=== PATIENT | female | born 1950 | race Caucasian/White ===

== ENCOUNTER 2023-12-30 08:18 | Outpatient (CLI) | payer OTHER, SELFPAY ==
--- NOTE | ~2023-12-30 | CT_ITS ---
CT Scan of the Chest without Contrast: Clinical Indication: Bronchiectasis Technique: Contiguous sections were acquired throughout the chest without intravenous contrast. Dose reduction technique was used on this scan by utilizing automated exposure control and iterative recon struction technique. The dose-length product (DLP) was 195.20 mGy-cm. COMPARISON: 09/19/2023 Findings: There is no evidence of any significant mediastinal, hilar or axillary lymphadenopathy. There are ext ensive atherosclerotic calcifications of the aorta and coronary arteries. There is no evidence of pleural or pericardial effusion. No significant bronchiectatic change seen. Pulmonary cyst noted in the right upper lobe. There is min imal nodularity of the right lung base, most prominent on axial image 80, where there is a 4 mm nodul e. There is mild left basilar atelectatic change. Images through the upper abdomen reveal large calcified gallstone. Chronic bilateral rib fracture def ormities are present. Impression: No bronchiectasis. Minimal nodularity right lung base, likely chronic/benign. Consider annual follow-up CT. Cholelithiasis. Reviewed, dictated and finalized at [facility]. Impression: No bronchiectasis. Minimal nodularity right lung base, likely chronic/benign. Consider annual foll ow-up CT. Cholelithiasis.
--- NOTE | 2023-12-30 11:53 | WPDPFTINT ---
PFT Procedure Performed PFT Procedure Performed Plethysmography (Lung Vol) Diffusing Cap (DLCO) Flow Vol Loop Spirometry w/o Bronchodil PFT Interpretation Lung volumes were measured with the body plethysmography method. Lung volumes are unremarkable. Spirometry showed normal expiratory flow rates and a normal FEV1 to FVC ratio 67%. Lung diffusion capacity is mild moderately reduced at 55% predicted. The flow volume loop is unremarkable. Of note during DLCO measurement the patient developed stridor. Reportedly she had no wheezing. Stridor cleared without treatment after few minutes. Clinical correlation advised. Impression: Spirometry and lung volumes within normal range. Moderately reduced lung diffusion capacity..
--- NOTE | 2023-12-30 11:55 | WPDSIXMINUTE ---
Six Minute Walk Procedure Procedure Performed Pulmonary Stress Test (6 min walk) Six Minute Walk Six Minute Walk: This 6 minute walk test was carried out with the patient breathing ambient air. The pre-walk baseline oxyhemoglobin saturation was 98%. The patient walked 900 feet with no stops during testing. During the walk the oxyhemoglobin saturation remained near 94%-95%. Impression: No evidence of oxyhemoglobin desaturation on this testing.
== END 2023-12-30 08:19 | disposition home or self-care (01) ==
PROVIDERS: PCP Internal Medicine; Visit Provider Internal Medicine Pulmonary Disease
DX: J47.9 Bronchiectasis, uncomplicated (principal); J45.909 Unspecified asthma, uncomplicated; R94.2 Abnormal results of pulmonary function studies; K80.20 Calculus of gallbladder without cholecystitis without obstruction; Z87.891 Personal history of nicotine dependence
CPT/HCPCS: 71250; 94375; 94618; 94726; 94729